=== PATIENT | female | born 1970 | race Caucasian/White ===

== ENCOUNTER 2017-09-12 21:10 | Outpatient (CLI) | payer MEDICAID, OTHER ==
--- NOTE | 2017-09-12 21:45 | RADRPT ---
PROCEDURE: OB Ultrasound. CLINICAL INDICATION: Positive test. Uncertain size and dates. TECHNIQUE: Ultrasound of the pelvis was performed with transabdominal sonography in the axial and sagittal planes. COMPARISON: No prior study is available for comparison. FINDINGS: There is no intrauterine gestational sac. The uterus measures 9.7 x 6.5 x 9.8 cm. Endometrial thickn ess is 12.8 mm. There is no uterine enlargement or mass. The right ovary appears normal measuring 4.2 x 3.0 x 3.0 cm. The left ovary is not visualized. Color Doppler and pulsed Doppler sonography demonstrate normal flow to the the right ovary. There is no other pelvic mass or free fluid. IMPRESSION: 1. No intrauterine gestational sac. If the patient has a positive test, ectopic gestation cannot be excluded. 2. Left ovary not visualized. 3. Otherwise unremarkable study. RPTAT: QQ .Mendoza Gongora MD, Date Time Electronically viewed and signed by .Mendoza Gongora MD, on 09/12/2017 21:45 .R/
--- NOTE | 2017-09-29 21:24 | QN ---
Documentation Comment Pt was sent up from the ER as she thought she was and was found to not be and left without being seen. HOLLEY MEDEROS MD Sep 29, 2017 21:24
== END 2017-09-12 21:40 | disposition left against medical advice (07) ==
LOC: OBT 21:10 → L-D 21:11 → OBT 21:40
PROVIDERS: ATTEND Obstetrics & Gynecology
DX: Z32.02 Encounter for pregnancy test, result negative (principal); Z53.21 Procedure and treatment not carried out due to patient leaving prior to being seen by health care provider
CPT/HCPCS: 76815; Z7500; G0463

== ENCOUNTER 2017-09-12 21:51 | Emergency (ER) | payer SELFPAY ==
[~2017-09-12] VITALS: Ht 160 cm; Wt 84.5 kg
[2017-09-12 22:29] VITALS: Ht 160 cm; Wt 84.5 kg
== END 2017-09-13 00:30 | disposition left against medical advice (07) ==
LOC: FTE 21:51
DX: Z53.21 Procedure and treatment not carried out due to patient leaving prior to being seen by health care provider (principal)